=== PATIENT | male | born 1985 | race Caucasian/White ===

== ENCOUNTER 2017-02-05 10:54 | Day surgery (SDC) | payer BC ==
[~2017-02-05] VITALS: Ht 190.5 cm; Wt 115.7 kg
[~2017-02-05 10:54] MED LIST: CEFAZOLIN SOD 1 GM/ ISO 50 ML PREMIX IV ONE
[2017-02-05] MEDS ORDERED: CEFAZOLIN 1 GM IVPB PREMIX 50 ML IV ONE (14:00)
[2017-02-05] MEDS ORDERED: LR 1,000 ML IV.SOLN IV ONE (14:00)
[2017-02-05] MEDS ORDERED: PROPOFOL 200MG/ 20ML VIAL (DIPRIVAN) IV ONE (14:00)
[2017-02-05] MEDS ORDERED: ONDANSETRON HCL 4 MG/2 ML VIAL ONE (14:00)
[2017-02-05] MEDS ORDERED: GLYCOPYRROLATE 0.2 MG/ML VIAL ONE (14:00)
[2017-02-05] MEDS ORDERED: MIDAZOLAM HCL 5 MG/5 ML VIAL ONE (14:00)
[2017-02-05] MEDS ORDERED: NS 1000 ML BAG IV ONE (14:00)
[2017-02-05] MEDS ORDERED: fentaNYL CITRATE 250 MCG/5 ML AMP ONE (14:00)
[2017-02-05] MEDS ORDERED: ROCURONIUM BROMIDE 10 MG/ML (ZEMURON) ONE (14:00)
[2017-02-05] MEDS ORDERED: SEVOFLURANE 15 MIN GAS INH ONE (14:00)
[2017-02-05] MEDS ORDERED: fentaNYL CITRATE/PF 100 MCG/2 ML AMP ONE (14:00)
[2017-02-05] MEDS ORDERED: NEOSTIGMINE METHYLSULFATE 1 MG/ML, 10 ML VIAL ONE (14:00)
[2017-02-05] MEDS ORDERED: POLYMYXIN 500,000/BACIT.10,000 UNITS in NS IRR 1 L IR ONE (14:05)
[2017-02-05] MEDS ORDERED: LR 1,000 ML IV SCH (14:22)
[2017-02-05] MEDS ORDERED: D5/0.45 NS 1,000 ML IV SCH (14:24)
[2017-02-05] MEDS ORDERED: HYDROmorphone 1 MG INJ. 1 MG/ML AMPUL IVP PRN (14:30)
[2017-02-05] MEDS ORDERED: METOCLOPRAMIDE HCL 10 MG/2 ML VIAL IVP PRN (14:30)
[2017-02-05] MEDS ORDERED: HYDROcodone/ACETAMIN 5-325 MG TAB (NORCO/ VICODIN) PO PRN ×2 (14:30)
[2017-02-05] MEDS ORDERED: MORPHINE 4 MG/ML INJ. SYRINGE IVP PRN ×3 (14:30)
[2017-02-05 15:44] VITALS: BP_SYST 126
== END 2017-02-05 15:55 | disposition home or self-care (01) ==
LOC: SDS 10:54 → SMU 10:55 → SDS 15:55
PROVIDERS: ATTEND Colon & Rectal Surgery
DX: K43.6 Other and unspecified ventral hernia with obstruction, without gangrene (principal)
CPT/HCPCS: 49561; 49568; C1781; J0690; J2250; J2405; J2704; J2710; J3010 ×2; J3490; J7030; J7120